=== PATIENT | male | born 1990 | race African-American/Black ===

== ENCOUNTER 2020-06-14 01:23 | Emergency (ER) | payer SELFPAY ==
[~2020-06-14] VITALS: Ht 177.8 cm; Wt 94.0 kg
[~2020-06-14 01:23] MED LIST: EPIN0.3P17 IM
[2020-06-14 02:06] LABS: CLARITY,URINE CLEAR (Clear); COLOR,URINE STRAW (Yellow); GLUCOSE, URINE NEGATIVE (Neg); KETONES,URINE NEGATIVE (Neg); LEUKOCYTE ESTERASE ,URINE NEGATIVE (Neg); NITRITES, URINE NEGATIVE (Neg); OCCULT BLOOD,URINE TRACE-INTACT (Neg); PROTEIN,URINE NEGATIVE (Neg); UROBILINOGEN,URINE 0.2 E.U/dL (0.2-1.0)
[2020-06-14 02:08] LABS: UA COLLECTION TYPE NON-SPECIFIED
[2020-06-14 02:11] LABS: BACTERIA,URINE NONE SEEN /HPF (Neg); RBC,URINE 0-2 /HPF (0-2); SQUAMOUS EPITHELIAL CELL,UR NONE SEEN /LPF (FEW); WBC,URINE NONE SEEN /HPF (0-4)
[2020-06-14 02:33] VITALS: BP 140/77
--- NOTE | 2020-06-14 02:53 | NUR ---
DR TELLO TALKING WITH PT ABOUT DC INSTRUCTIONS.
== END 2020-06-14 03:01 | disposition home or self-care (01) ==
LOC: ER 01:25
DX: R35.8 Other polyuria (principal); R19.7 Diarrhea, unspecified; Z91.018 Allergy to other foods; Z79.899 Other long term (current) drug therapy
CPT/HCPCS: 81001; 82948; 99283